=== PATIENT | female | born 1975 | race Caucasian/White ===

== ENCOUNTER 2018-01-04 12:12 | Emergency (ER) | payer SELFPAY ==
[2018-01-04 12:26] VITALS: BP 163/95
--- NOTE | 2018-01-04 12:26 | ED Physician Documentation ---
Ear Complaints - HPI Stated Complaint: left ear pain Chief Complaint: Earache Additional Information: Patient presents to ED with a 48 hour history of right ear pain. She states she has had this in the past and was prescribed antibiotic orally, ear drop and tramadol for pain. She denies fever. Timing: still present Location of Pain: R ear Severity: moderate Associated Symptoms: sharp pain, dull pain, aching, swollen glands. denies: fever, chills Further Comments: no - ROS CONST: denies: recent illness CVS/RESP: denies: chest pain, shortness of breath GI/: denies: nausea, vomiting MS/SKIN/LYMPH: denies: leg swelling NEURO/PSYCH: denies: weakness, numbness - PAST HX Past History: diabetes Type 2 Allergies/Adverse Reactions: Allergies Allergy/AdvReac Type Severity Reaction Status Date / Time aspirin Allergy Verified 01/04/18 12:27 azithromycin Allergy Verified 01/04/18 12:27 codeine Allergy Verified 01/04/18 12:27 naproxen [From Aleve] Allergy Verified 01/04/18 12:27 theophylline [From Garry-Dur] Allergy Verified 01/04/18 12:27 Home Medications: Ambulatory Orders Medication Instructions Recorded Cephalexin [Keflex] 500 mg PO TID #21 capsule 01/04/18 Neomycin/Polymyxin B/Hydrocort 10 ml OT TID 7 Days bottle 01/04/18 [Cortisporin Otic] traMADol HCL [Ultram] 50 mg PO Q8 PRN #8 tablet 01/04/18 - SOCIAL HX Smoking History: cigarettes, greater than 1 pack/day Alcohol Use: none Drug Use: none - FAMILY HX Family History: No - REVIEWED ASSESSMENTS Nursing Assessment Reviewed: Yes Vitals Reviewed: Yes Ear Complaint Physical Exam - EXAM General Appearance: no acute distress, alert Ear: pain w movement of auricl, right, erythema, swelling of canal Mouth/Throat: No: pharyngeal erythema Nose: nml inspection Head/Neck: atraumatic, cervical lymphadenopathy. No: facial swelling Eye: PERRL Resp/CVS: chest non-tender, breath sounds nml, heart sounds nml Abdomen: non-tender Skin: nml color, no skin rash Neuro/Psych: oriented x3, mood/affect nml Discharge Clincal Impression: Otitis externa Qualifiers: Otitis externa type: diffuse Chronicity: acute Laterality: right Qualified Code(s): H60.311 - Diffuse otitis externa, right ear Prescriptions: Cephalexin [Keflex] 500 mg PO TID #21 capsule Neomycin/Polymyxin B/Hydrocort [Cortisporin Otic] 10 ml OT TID 7 Days bottle traMADol HCL [Ultram] 50 mg PO Q8 PRN #8 tablet PRN Reason: Pain Additional Instructions: Take all medications as prescribed. Condition: Stable Disposition: 01 HOME, SELF-CARE Decision to Admit: NO Date of Decison to Admit: 01/04/18 Decision Time: 12:39
== END 2018-01-04 12:40 | disposition home or self-care (01) ==
LOC: ED 12:12
DX: H60.311 Diffuse otitis externa, right ear (principal)
CPT/HCPCS: 99283